=== PATIENT | male | born 1985 | race Caucasian/White ===

== ENCOUNTER → 2016-09-24 | Outpatient (CLI) | payer BC ==
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
== END | disposition home or self-care (01) ==
LOC: C.CTS 12:42
PROVIDERS: ATTEND Family Medicine
DX: R51 Headache (principal); M43.6 Torticollis; V19.9XXA Pedal cyclist (driver) (passenger) injured in unspecified traffic accident, initial encounter; R91.8 Other nonspecific abnormal finding of lung field